=== PATIENT | female | born 1970 | race Caucasian/White ===

== ENCOUNTER → 2017-04-07 | Outpatient (CLI) | payer OTHER ==
--- NOTE | 2017-04-07 13:35 | US ---
EXAMINATION TYPE: US pelvis complete transvag DATE OF EXAM: 04/07/2017 COMPARISON: Pelvic ultrasound April 03, 2015 CLINICAL HISTORY: N93.8 DUB. TECHNIQUE: Transvaginal (TV) and Transabdominal (TA) Date of LMP: 04/05/3017 EXAM MEASUREMENTS: Uterus: 8.4 x 3.9 x 5.9 cm Endometrial Stripe: 0.3 cm Right Ovary: 2.4 x 1.4 x 1.6 cm Left Ovary: 2.2 x 1.9 x 1.4 cm 1. Uterus: Anteverted small nabothian cysts largest 0.9 x 0.7 x 0.8 cm fundal saclike structure 0.4 x 0.6 x 0.3 cm 2. Endometrium: lower fluid 1.2 x 0.3 x 0.2 3. Right Ovary: cyst 2.7 x 2.8 x 2.7 cm 4. Left Ovary: 2.0 x 2.1 x 2.3 cm cyst 5. Bilateral Adnexa: see above 6. Posterior cul-de-sac: wnl Nabothian cysts are marked in the cervix by technologist. There is small amount of fluid in endometri al canal at level of cervix as well as in the uterine fundus. No suspicious thickening of endometrium is seen. There is 2.8 cm fairly simple appearing cyst in the right ovary. There is 2.0 prominent follicle or s imple appearing cyst in the periphery of the left ovary seen best on transvaginal imaging. IMPRESSION: No suspicious finding is seen to account for patient's symptoms.
[2017-04-07 14:18] LABS: CH 30.6; CHCM 32.3; HDW 2.07; HGB 13.4 gm/dL (11.4-16.0); MCH 31.1 pg (25.0-35.0); MCHC 32.7 g/dL (31.0-37.0); MCV 95.1 fL (80.0-100.0); Mean Platelet Volume 7.1; RBC 4.31 m/uL (3.80-5.40); RDW 13.7 % (11.5-15.5); WBC 8.6 k/uL (3.8-10.6)
== END ==
LOC: RADUSWWP 12:23
PROVIDERS: ATTEND Obstetrics & Gynecology
DX: N93.8 Other specified abnormal uterine and vaginal bleeding (principal)
CPT/HCPCS: 36415; 76830; 76856; 83001; 83002; 84146; 85027

== ENCOUNTER → 2017-07-16 | Outpatient (CLI) | payer OTHER ==
[2017-07-16 13:06] LABS: Basophils # (A) 0.1 k/uL (0-0.2); Basophils % (A) 1 %; Eosinophils # (A) 0.3 k/uL (0-0.7); Eosinophils % (A) 3 %; HCT 43.8 % (34.0-46.0); HGB 14.3 gm/dL (11.4-16.0); Lymphocytes # (A) 2.1 k/uL (1.0-4.8); Lymphocytes % (A) 25 %; MCH 30.4 pg (25.0-35.0); MCHC 32.7 g/dL (31.0-37.0); MCV 93.1 fL (80.0-100.0); Mean Platelet Volume 7.2; Monocytes # (A) 0.4 k/uL (0-1.0); Monocytes % (A) 5 %; Neutrophils # (A) 5.5 k/uL (1.3-7.7); Neutrophils % (A) 65 %; Platelet Count 296 k/uL (150-450); WBC 8.5 k/uL (3.8-10.6)
[2017-07-16 13:13] LABS: Anion Gap 11 mmol/L; Blood Urea Nitrogen 16 mg/dL (7-17); Calcium 9.9 mg/dL (8.4-10.2); Carbon Dioxide 27 mmol/L (22-30); Chloride 104 mmol/L (98-107); Glucose 80 mg/dL (74-99); Potassium 4.7 mmol/L (3.5-5.1); Sodium 142 mmol/L (137-145)
== END | disposition home or self-care (01) ==
LOC: LABPAT 11:52
PROVIDERS: ATTEND Obstetrics & Gynecology
DX: Z01.812 Encounter for preprocedural laboratory examination (principal)
CPT/HCPCS: 36415; 80048; 85025; 87086

== ENCOUNTER → 2017-07-16 | Outpatient (CLI) | payer OTHER | END | disposition home or self-care (01) | LOC: LABWHC1 11:54 | PROVIDERS: ATTEND Urology | DX: N39.46 Mixed incontinence (principal) | CPT/HCPCS: 87086 ==

== ENCOUNTER 2017-07-24 06:09 | Observation (INO) | payer OTHER ==
[2017-07-22 09:02] VITALS: BMI 35.7
--- NOTE | 2017-07-23 20:23 | P.HPOB ---
History of Present Illness H&P Date: 07/23/17 Chief Complaint: Menorrhagia Patient is a 47-year-old female with heavy vaginal bleeding. Bleeding is very heavy and has continued to worsen. It is severely limiting her lifestyle and keeps her from being able work and function in her desired fashion. She also has stress urinary incontinence and is scheduled for a T OT at the same time as her robotic hysterectomy. Risks/benefits/alternatives to a robotic-assisted left scopic hysterectomy were reviewed with the patient in detail and all questions were answered for her prior to proceeding to the operating room. On physical exam this is an obese female whose HEENT is unremarkable. Heart regular, lungs clear, extremities without pain. Osteopathic exam is unremarkable. Pelvic exam is generally unremarkable and her abdomen is soft and nontender with positive bowel sounds. Assessment menorrhagia resistant to other therapies. Plan robotic-assisted left scopic hysterectomy possible VELVET possible BSO. Past Medical History Past Medical History: Osteoarthritis (OA) Additional Past Medical History / Comment(s): ARTHRITIS IN NECK, HX OF MIGRAINES., PAST HX OF HYPOTHROID WITH RX., TORN RIGHT KNEE MENISCUS., BLADDER LEAKAGE, STATES PAINFUL ABD CRAMPS WITH MENSTRUAL PERIOD. History of Any Multi-Drug Resistant Organisms: None Reported Past Surgical History: Orthopedic Surgery, Uterine Ablation Additional Past Surgical History / Comment(s): LEFT CARPAL TUNNEL. Past Anesthesia/Blood Transfusion Reactions: No Reported Reaction Past Psychological History: Anxiety, Depression Smoking Status: Former smoker Past Alcohol Use History: Occasional Additional Past Alcohol Use History / Comment(s): QUIT SMOKING 2 YRS AGO, SMOKED <1PPD., SMOKED APPROX 20 YRS. Past Drug Use History: Marijuana Additional Drug Use History / Comment(s): [employer] MARIJUANA CARD . INSTRUCTED NO MARIJANA 24 HOURS PRIOR TO SURGERY. - Past Family History Mother Family Medical History: No Reported History Medications and Allergies Home Medications Medication Instructions Recorded Confirmed Type Melatonin 3 mg PO HS 10/17/15 07/22/17 History Ibuprofen 800 mg PO ONCE 07/22/17 07/22/17 History Allergies Allergy/AdvReac Type Severity Reaction Status Date / Time Penicillins Allergy Rash/Hives Verified 07/22/17 08:34 Exam Osteopathic Statement: *. No significant issues noted on an osteopathic structural exam other than those noted in the History and Physical/Consult.
[~2017-07-24 06:09] MED LIST: DEXAMETHASONE SOD PHOSPHATE 10 MG/ML 1 ML VIAL IV ONE; FAMOTIDINE 20 MG/2 ML VIAL IV PRN; LIDOCAINE 1% 20 ML VIAL (10MG/ML) FOR IV START INTRADERMA PRN; ONDANSETRON 4 MG/2 ML VIAL IVP ONE; Pre Op ABX Message 1 EACH MISC MISCELLANE ONE; ceFAZolin IN SWFI 2 GM/20 ML SYRINGE IVP ONE
[2017-07-24] MEDS: LACTATED RINGERS 1,000 ML IV SCH (06:53)
[2017-07-24] MEDS ORDERED: GENTAMICIN 80 MG in SODIUM CHLORIDE 0.9% 100 ML IVPB ONE (07:30)
[2017-07-24] MEDS ORDERED: HYDROmorphone (PF) 1 MG/ML ONE (07:45)
[2017-07-24] MEDS ORDERED: ROCURONIUM BROMIDE 10 MG/ML 10 ML VIAL IV ONE (07:45)
[2017-07-24] MEDS ORDERED: LABETALOL 5 MG/ML VIAL MDV ONE (07:45)
[2017-07-24] MEDS ORDERED: fentaNYL (PF) 50 MCG/ML 2 ML AMP ONE (07:45)
[2017-07-24] MEDS ORDERED: MIDAZOLAM 2 MG/2 ML VIAL ONE (07:45)
[2017-07-24] MEDS ORDERED: LIDOCAINE 1% INJ 10MG/ML (20 ML MDV) ONE (07:45)
[2017-07-24] MEDS ORDERED: SUCCINYLCHOLINE CHLORIDE 100 MG/5 ML SYR IV ONE (07:45)
[2017-07-24] MEDS ORDERED: GLYCOPYRROLATE 0.2 MG/ML 2 ML VIAL ONE (07:45)
[2017-07-24] MEDS ORDERED: NEOSTIGMINE 1 MG/ML 10 ML VIAL ONE (07:45)
[2017-07-24] MEDS ORDERED: PROPOFOL 10 MG/ML 20 ML VIAL IV ONE (07:45)
[2017-07-24] MEDS ORDERED: BUPIVACAINE (PF) 0.25% 30 ML VIAL SQ ONE (08:54)
[2017-07-24] MEDS ORDERED: GENTAMICIN 80 MG in SODIUM CHLORIDE 0.9% 500 ML IRRIGATION ONE (09:23)
--- NOTE | 2017-07-24 09:40 | P.OP ---
Date of Procedure: 07/24/17 Preoperative Diagnosis: Menorrhagia dysmenorrhea Postoperative Diagnosis: Same Procedure(s) Performed: Robotic-assisted laparoscopic hysterectomy with final closure done vaginally Anesthesia: LEANA Surgeon: Philip Felton Assessment Counselor #1: Sonya Guevara Estimated Blood Loss (ml): 100 Pathology: other (Uterus and cervix) Condition: stable Disposition: floor Operative Findings: Normal uterus tubes right ovary did have a Description of Procedure: Patient was taken to the operating suite where general anesthetic was found be adequate. She was prepped and draped in the normal sterile fashion placed in dorsal lithotomy position. Initially a weighted speculum was inserted into the vagina and the anterior lip cervix identified and grasped with a single-tooth tenaculum area cervix was then dilated and uterus was sounded to 8 cm. 3 cm cup was then used and a Maria E manipulator was inserted without difficulty. Cervix had been marked at 3 and 9 to assist in removal of the uterus. Once laparoscopic instruments were removed and Anders catheter was placed. Gloves were then changed and attention was turned to the abdominal portion of the procedure where 2 mL of quarter percent Marcaine was injected periumbilically. Through this injected anesthetic a 5 mm skin incision was made and through this incision under direct visualization with an optical trocar and sleeve the camera was inserted. Once peritoneal placement was assured gas was allowed to fully insufflate the abdomen and patient's placement very steep Trendelenburg position. 2 lateral ports then placed slightly inferior to the umbilicus and 10 cm lateral to the umbilicus on both the right and left hand side and a fourth port and sleeve was inserted through 1 cm incision between the left lateral and medial ports. Robot was then brought in and docked and a Maryland grasper was placed in the 2 arm and a monopolar scissor and the one arm. At this point I broke scrub and went to the console. Observations pelvis were noted. The uterus was then elevated and tipped to the right side and the utero- ovarian layer was identified cauterized and transected round ligament tissues and fallopian tube were then transected dissected with cauterization all the way to the round ligament. Round ligament was then cauterized and transected and skeletonization of the tissues anteriorly and posteriorly was done. Once, tries to the level the bladder flap bladder flap was undermined with the Maryland and incised with metastases scissors carrying this opening across the face of the uterus. Latter was then bluntly dissected out of the operative field. Similar dissection was then done on the right-hand side. Once this was accomplished balloon was blown up in an anterior colpotomy was made following the cup in a counterclockwise fashion we were able to cauterize the uterine vascularity to help maintain hemostasis however, when uterus was tried to be sharply anteverted the table on the Maria E manipulator broke and was not allowing- assisted manipulate the uterus any further we had gotten approximately two th[address] way around the uterus when this happened and despite with a single- tooth tenaculum intra-abdominally we were unable to visualize well enough that I felt comfortable to proceed. Due to the limited visibility and as far into the surgery as we were at that point a decision was made to terminate the robotic portion of the procedure and moved to a vaginal hysterectomy for PURPOSES. Robot was then undocked and moved out of the operative field patient was placed in his much deeper Sammie position sit we're able to get into the vagina well instruments her from the vagina were removed. At this point I did remove the sutures as well and grasped the cervix with a single-tooth tenaculum pulling the uterus down I was able to identify the posterior peritoneum with my finger and placed in Allis clamp on. Using a Vance scissors the posterior colpotomy was completed to approximately uterosacral ligament on the right-hand side where a Omayra clamp was used to clamp this tissue tissue was clamped cut and tied and the uterus was removed in toto. No bleeding is noted from any of the pedicles. Boundaries of the vaginal cuff were then identified and marked with Allis clamps and using traction suture was placed and the vaginal cuff was closed in a running locking fashion with 0 Vicryl suture. Once this was completed no bleeding is noted in the vagina and urine is noted to be clear. At this point we returned to the abdominal portion of procedure Sharon scrub skin again and camera was inserted no bleeding is noted from any of the pedicles pelvis was suctioned and irrigated of blood and fluids and all instruments were then removed and gas was allowed to expel from the abdomen. 5 deep breaths were provided during this process. The skin incisions were then closed with 4-0 Vicryl subcuticularly. The remaining 8 mL of quarter percent Marcaine was then injected around these incisions and the patient was then positioned for Dr. Marcum to do a sling procedure. Overall from my standpoint patient did tolerate the surgery very well and despite the instrument failure we were able to conclude the procedure in a minimally invasive fashion.
[2017-07-24] MEDS ORDERED: BUPIVACAINE-EPI 0.5%-1:200,000 10 ML VIAL SQ ONE ×2 (09:47→10:09)
[2017-07-24] MEDS ORDERED: LACTATED RINGERS 1,000 ML IV ONE ×2 (09:48)
--- NOTE | 2017-07-24 10:21 | P.OP ---
Date of Procedure: 07/24/17 Preoperative Diagnosis: Mixed Urinary Incontinence Postoperative Diagnosis: Same Procedure(s) Performed: Obtryx Subfascial Sling Anesthesia: LEANA Surgeon: Scott Otto Estimated Blood Loss (ml): 30 IV fluids (ml): 300 Pathology: none sent Condition: stable Disposition: PACU Indications for Procedure: 47 yo WF with a several year history of mixed urinary incontinence, which requires the use of several pads daily. She is scheduled to undergo a robotic- assisted laparoscopic hysterectomy. On examination, there is evidence of urethral hypermobility. Stress incontinence is demonstrated, and a Ben test is positive. She has elected to undergo a TOT sling at the time of the hysterectomy, and this was discussed in detail. Also discussed: rationale for treatment, alternative treatment options, risks, and the recent controversy regarding synthetic slings. Operative Findings: No anatomic abnormalities noted. Description of Procedure: I entered the operating room after the hysterectomy was completed. The patient was positioned in the dorsal lithotomy position, with her legs supported in Ruel stirrups. Her condition was stable. 0.5% Marcaine with epinephrine was injected submucosally within the anterior vaginal wall, over the urethra. The scalpel was then used to make an anterior midline vaginal incision over the urethra. Metzenbaum scissors were used to dissect laterally within the submucosal plane, to the inferior pubic ramus. The scalpel was used to make bilateral groin incisions at the level of the clitoris. Subcutaneous tissues were spread with a hemostat. Each of the helical needles were passed through the respective groin incision, and turned such that the needle tip wrapped around the pubis. The needle tips were guided digitally into the vaginal incision. The Obtryx graft, which had been previously soaked in antibiotic solution, was secured to the needle tips in the standard fashion. The needles were then withdrawn, and the position of the graft was adjusted such that it overlie the mid urethra, as desired. With a hemostat placed between the graft and the urethra to prevent tension of the graft over the urethra, the plastic sheath was removed from the ends of the graft. The ends of the graft were cut beneath the skin incisions, and these incisions were closed using 4-0 Vicryl suture in a subcuticular fashion. Hemostasis within the vaginal incision was adequate, and the vaginal incision was closed using 2-0 Vicryl suture in a running fashion. Cystoscopy was performed. The 30 lens was used to introduce the 17-Bulgarian Storz cystoscopic sheath through the urethra and into the bladder under direct vision. The urethra and bladder were unremarkable. There was no evidence of perforation. Both ureteral orifices were of normal anatomic location and configuration, and clear urine effluxed from both. No tumors or foreign bodies were seen. The cystoscope was removed, and the Anders catheter was replaced into the bladder. All sponge and needle counts were correct. The patient tolerated the procedure well was taken to the recovery room in stable condition.
[2017-07-24] MEDS ORDERED: HYDROcodone/APAP 5-325MG 1 EACH TAB PO PRN ×2 (10:24)
[2017-07-24] MEDS: HYDROmorphone 0.5 MG/0.5 ML SYRINGE IVP PRN ×2 (10:48→21:04)
[2017-07-24] MEDS ORDERED: KETOROLAC 30 MG/ML 1 ML VIAL IVP ONE (10:48)
[2017-07-24] MEDS ORDERED: diphenhydrAMINE 50 MG/ML 1 ML VIAL IVP ONE (10:49)
[2017-07-24] MEDS: DEXTROSE 5%-0.45% NACL 1,000 ML IV SCH (15:37)
[2017-07-24] MEDS: ONDANSETRON 4 MG/2 ML VIAL IVP PRN (18:09)
[2017-07-24] MEDS: LEVOFLOXACIN 500MG-D5W PMX 500 MG in DEXTROSE/WATER 1 100ML.BAG IVPB SCH (18:09)
[2017-07-24] MEDS: KETOROLAC 30 MG/ML 1 ML VIAL IVP PRN (18:10)
[2017-07-25] MEDS: KETOROLAC 30 MG/ML 1 ML VIAL IVP PRN (00:02)
[2017-07-25] MEDS: DEXTROSE 5%-0.45% NACL 1,000 ML IV SCH ×2 (02:20→14:43)
[2017-07-25] MEDS: HYDROmorphone 2 MG/ML 1 ML SYRINGE IVP PRN ×3 (02:26→11:28)
--- NOTE | 2017-07-25 09:03 | P.PN ---
Progress Note - Text Progress Note Date: 07/25/17 patient seen and evaluated postop day 1 from a laparoscopic assisted robotic hysterectomy with vaginal removal. She is doing very well. She is ambulating, voiding and she is tolerating her diet. She voices no complaints. Vital signs are stable and afebrile. Heart regular, lungs clear, extremities without pain. Abdomen is soft minimal distention with incisions are clean dry and intact. Assessment postop day 1. Plan likely discharged home later today once urology has done there evaluation.
[2017-07-25] MEDS: LEVOFLOXACIN 500MG-D5W PMX 500 MG in DEXTROSE/WATER 1 100ML.BAG IVPB SCH (11:25)
[2017-07-25] MEDS: ONDANSETRON 4 MG/2 ML VIAL IVP PRN (13:11)
[2017-07-25] MEDS ORDERED: BISACODYL 10 MG SUPP RECTAL PRN (17:06)
--- NOTE | 2017-07-25 17:06 | P.DS ---
Providers Date of admission: 07/24/17 19:59 Expected date of discharge: 07/25/17 Attending physician: Scott Otto Primary care physician: Stated None Hospital Course: On the day of admission, the patient underwent a robotic-assisted laparoscopic hysterectomy. The final closure was done vaginally without complication. An Obtryx sling was performed at that time. The Anders catheter was removed on the first postoperative day. The patient was able to void, and postvoid residuals were under 100 mL. She experienced some nausea, and had 2 episodes of emesis. She was ambulating, and passing a small amount of flatus. She was tolerating diet in small amounts. On examination, the incisions were clean and dry. Minimal vaginal spotting is noted. Procedures: Robotic-assisted laparoscopic hysterectomy with Obtryx sling on 07/24/2017. Patient Condition at Discharge: Good Plan - Discharge Summary Discharge Rx Participant: Yes New Discharge Prescriptions: New Hydrocodone/Acetaminophen [Ontario 5-325] 1 - 2 each PO Q4HR PRN #20 tab PRN Reason: Pain Ketorolac [Toradol] 10 mg PO Q6HR #12 tab Levofloxacin [Levaquin] 500 mg PO DAILY #5 tab Ondansetron [Zofran] 4 mg PO Q8HR PRN #10 tab PRN Reason: Nausea And Vomiting No Action Melatonin 3 mg PO HS Ibuprofen 800 mg PO ONCE Discharge Medication List Melatonin 3 mg PO HS 10/17/15 [History] Ibuprofen 800 mg PO ONCE 07/22/17 [History] Hydrocodone/Acetaminophen [[place]tario 5-325] 1 - 2 each PO Q4HR PRN #20 tab 07/25/17 [Rx] Ketorolac [Toradol] 10 mg PO Q6HR #12 tab 07/25/17 [Rx] Levofloxacin [Levaquin] 500 mg PO DAILY #5 tab 07/25/17 [Rx] Ondansetron [Zofran] 4 mg PO Q8HR PRN #10 tab 07/25/17 [Rx] Follow up Appointment(s)/Referral(s): Scott Otto MD [STAFF PHYSICIAN] - 07/30/17 Activity/Diet/Wound Care/Special Instructions: Okay to shower 07/26/2017. No lifting, driving, or strenuous activity. Discharge Disposition: HOME SELF-CARE
[2017-07-25 17:54] VITALS: BP 149/81; PULSE 60; RESP 20; TEMP 98
[2017-07-26] MEDS ORDERED: LEVOFLOXACIN 500 MG TAB PO SCH (11:00)
== END 2017-07-25 18:55 | disposition home or self-care (01) ==
LOC: OR 06:09 → 6PED 10:21 → OR 19:59 → 6PED 19:59
PROVIDERS: ADMIT Urology; ATTEND Urology
DX: N80.0 Endometriosis of uterus (principal); N88.8 Other specified noninflammatory disorders of cervix uteri; N72 Inflammatory disease of cervix uteri; N92.0 Excessive and frequent menstruation with regular cycle; N39.46 Mixed incontinence; N94.6 Dysmenorrhea, unspecified; N36.41 Hypermobility of urethra; E66.9 Obesity, unspecified; M19.90 Unspecified osteoarthritis, unspecified site; M46.92 Unspecified inflammatory spondylopathy, cervical region; Z87.891 Personal history of nicotine dependence; Z88.0 Allergy status to penicillin; Z79.899 Other long term (current) drug therapy; Z86.39 Personal history of other endocrine, nutritional and metabolic disease
CPT/HCPCS: 57288; 58550; S2900; 81025; 86850; 86900; 86901; 88307

== ENCOUNTER → 2022-02-15 | Outpatient (CLI) | payer OTHER ==
--- NOTE | 2022-02-15 15:50 | MM ---
Reason for Exam: Additional evaluation requested from prior study. Last mammogram was performed 6 year(s) and 10 month(s) ago. Indicated Problems: Lump or thickening of the right side for 2 Week(s). Patient History: Menarche at age 14. First Full-Term at age 23. Hysterectomy at age 48. Postmenopausal. Risk Values: Karen 5 year model risk: 0.9%. NCI Lifetime model risk: 8.0%. Prior Study Comparison: 04/17/2015 Bilateral Screening Mammogram, [facility]. Tissue Density: There are scattered fibroglandular densities. Findings: Analyzed By CAD. Scattered benign calcifications seen bilaterally. No evidence for mass or distortion. Overall Assessment: Benign, BI-RAD 2 Management: Screening Mammogram of both breasts in 1 year. A clinical breast exam by your physician is recommended on an annual basis and results should be correlated with mammographic findings. This exam should not preclude additional follow-up of suspicious palpable abnormalities. Results were given to the patient verbally at the time of exam. Electronically signed and approved by: Gerardo Pedro M.D. Radiologis
== END | disposition home or self-care (01) ==
LOC: RADMAMWWP 12:59
PROVIDERS: ATTEND Family Medicine
DX: Z12.31 Encounter for screening mammogram for malignant neoplasm of breast (principal); R92.8 Other abnormal and inconclusive findings on diagnostic imaging of breast; Z78.0 Asymptomatic menopausal state
CPT/HCPCS: 77066

== ENCOUNTER → 2023-11-18 | Outpatient (CLI) | payer OTHER ==
--- NOTE | 2023-11-18 20:36 | MM ---
Reason for Exam: Screening (asymptomatic). Last mammogram was performed 1 year(s) and 9 month(s) ago. Patient History: Menarche at age 14. First Full-Term at age 23. Hysterectomy at age 48. Postmenopausal. Patient has history of breast feeding. Maternal aunt (great) had ovarian cancer at or over age 50. Risk Values: Karen 5 year model risk: 0.9%. NCI Lifetime model risk: 7.8%. Prior Study Comparison: 04/17/2015 Bilateral Screening Mammogram, [facility]. 02/15/2022 Bilateral MG diagnostic mammo w CAD PENNY, [facility]. Tissue Density: There are scattered areas of fibroglandular density. Findings: Analyzed By CAD. There is no suspicious group of microcalcifications or new suspicious mass in either breast. Overall Assessment: Negative, BI-RAD 1 Management: Screening Mammogram of both breasts in 1 year. . Patient should continue monthly self-breast exams. A clinical breast exam by your physician is recommended on an annual basis. This exam should not preclude additional follow-up of suspicious palpable abnormalities. Note on Karen scores and lifetime risk: 1. A Karen score greater than 3% is considered moderate risk. If this is the case, consider specialist referral to assess eligibility for a risk reducing agent. 2. If overall lifetime risk for the development of breast cancer is 20% or higher, the patient may qualify for future screening with alternating mammogram and breast MRI. Electronically signed and approved by: Justus Joseph M.D. Radiologist
--- NOTE | 2023-11-18 20:44 | BD ---
EXAMINATION TYPE: Axial Bone Density DATE OF EXAM: 11/18/2023 CLINICAL HISTORY: 53 years old Female. ICD-10 CODE: Z78.0 ASYMP LUIS ENRIQUE STATE Height: Weight: FRAX RISK QUESTIONS: 3. Menopause before 45: no at 48 Current Tobacco Use: yes, marijuana, RISK FACTORS HISTORY OF: arthritis, MEDICATIONS: probiotic only, Thyroid Medications: yes, synthroid product, 2-3 yrs EXAM MEASUREMENTS: Bone mineral densitometry was performed using the [employer] System. Bone mineral density as measured about the Lumbar spine is: ----- L1-L4(G/cm2): 1.319 T Score Values are as follows: ----- L1: 0.7 ----- L2: 1.7 ----- L3: 1.3 ----- L4: 0.7 ----- L1-L4: 1.2 Z Score Values are as follows: ----- L1: 0.1 ----- L2: 1.2 ----- L3: 0.7 ----- L4: 0.1 ----- L1-L4: 0.6 Bone mineral density is her first dexa study, baseline. Bone mineral density about the R hip (g/cm2): 1.168 Bone mineral density about the L hip (g/cm2): 1.248 T Score values are as follows: -----R Neck: 0.7 -----L Neck: 0.7 -----R Total: 1.3 -----L Total: 1.9 Z Score values are as follows: -----R Neck: 0.9 -----L Neck: 0.8 -----R Total: 1.0 -----L Total: 1.6 Bone mineral density is a baseline study today. FRAX%s: The graph provided illustrates a 3.6% chance for a major osteoporotic fx and a 0.0% chance fo r the hips probability for fx in 10 years time. IMPRESSION: Normal (Values between +1 and -1 indicate normal bone mass). Consider repeating this study in 5 year s or sooner if there is some new clinical indication. NOTE: T-SCORE=SD OF THE YOUNG ADULT MEAN.
== END | disposition home or self-care (01) ==
LOC: RADMAMWWP 08:26
PROVIDERS: ATTEND Family Medicine
DX: Z12.31 Encounter for screening mammogram for malignant neoplasm of breast (principal); Z78.0 Asymptomatic menopausal state
CPT/HCPCS: 77067; 77080

== ENCOUNTER 2024-04-18 14:02 | Emergency (ER) | payer OTHER ==
[2024-04-18 14:21] VITALS: TEMP 98.9
[2024-04-18] MEDS: PROPARACAINE 0.5% OPHTH DROPS 15 ML BTL LEFT EYE STA (14:39)
[2024-04-18] MEDS: FLUORESCEIN STRIPS 1 MG STRIP RIGHT EYE ONE (14:39)
--- NOTE | 2024-04-18 14:50 | ED ---
Eye Problem HPI - General Chief complaint: Eye Problems Stated complaint: eye issue Time Seen by Provider: 04/18/24 14:23 Source: patient, RN notes reviewed Mode of arrival: ambulatory Limitations: no limitations - History of Present Illness Initial comments: 4-year-old female presents emergency department with chief complaint of left eye irritation. Patient states that she wore some old colored contacts yesterday for hollowing costume. She states that she woke up with discomfort of her left eye she states that it is hazy all over. Denies any pain behind her eye denies any pain with ocular movements. Patient denies any fevers or chills patient offers no other complaints. - Related Data Home Medications Medication Instructions Recorded Confirmed Melatonin 3 mg PO HS 10/17/15 07/25/17 Ibuprofen 800 mg PO ONCE 07/22/17 07/25/17 Previous Rx's Medication Instructions Recorded Hydrocodone/Acetaminophen [[place] 1 - 2 each PO Q4HR PRN #20 tab 07/25/17 5-325] Ketorolac [Toradol] 10 mg PO Q6HR #12 tab 07/25/17 Levofloxacin [Levaquin] 500 mg PO DAILY #5 tab 07/25/17 Ondansetron [Zofran] 4 mg PO Q8HR PRN #10 tab 07/25/17 Allergies Allergy/AdvReac Type Severity Reaction Status Date / Time Penicillins Allergy Rash/Hives Verified 07/24/17 21:09 Review of Systems ROS Statement: Those systems with pertinent positive or pertinent negative responses have been documented in the HPI. ROS Other: All systems not noted in ROS Statement are negative. Past Medical History Past Medical History: Osteoarthritis (OA) Additional Past Medical History / Comment(s): ARTHRITIS IN NECK, HX OF MIGRAINES., PAST HX OF HYPOTHROID WITH RX., TORN RIGHT KNEE MENISCUS., BLADDER LEAKAGE, STATES PAINFUL ABD CRAMPS WITH MENSTRUAL PERIOD. History of Any Multi-Drug Resistant Organisms: None Reported Past Surgical History: Bladder Surgery, Hysterectomy, Orthopedic Surgery, Uterine Ablation Additional Past Surgical History / Comment(s): LEFT CARPAL TUNNEL. Past Anesthesia/Blood Transfusion Reactions: No Reported Reaction Past Psychological History: Anxiety, Depression Smoking Status: Former smoker Past Alcohol Use History: Occasional Past Drug Use History: Marijuana - Past Family History Mother Family Medical History: No Reported History General Exam Limitations: no limitations General appearance: alert, in no apparent distress Head exam: Present: atraumatic, normocephalic, normal inspection Eye exam: Present: PERRL, EOMI, other (Fluorescein uptake of the left eye in the central region multiple areas patient had full relief of proparacaine). Absent: normal appearance, scleral icterus, conjunctival injection, periorbital swelling ENT exam: Present: normal exam, normal oropharynx, mucous membranes moist Neck exam: Present: normal inspection. Absent: tenderness, meningismus, lymphadenopathy Respiratory exam: Present: normal lung sounds bilaterally. Absent: respiratory distress, wheezes, rales, rhonchi, stridor Cardiovascular Exam: Present: regular rate, normal rhythm, normal heart sounds. Absent: systolic murmur, diastolic murmur, rubs, gallop, clicks Course Vital Signs 04/18/24 14:17 Temperature 98.9 F Pulse Rate 83 Respiratory 18 Rate Blood Pressure 160/96 O2 Sat by Pulse 99 Oximetry Medical Decision Making - Medical Decision Making Was pt. sent in by a medical professional or institution (, PA, STICK FEEDER, urgent care, hospital, or senior care...) When possible be specific @ -No Did you speak to anyone other than the patient for history (EMS, parent, family, police, friend...)? What history was obtained from this source @ -No Did you review nursing and triage notes (agree or disagree)? Why? @ -I reviewed and agree with nursing and triage notes Were old charts reviewed (outside hosp., previous admission, EMS record, old EKG, old radiological studies, urgent care reports/EKG's, senior care records)? Report findings @ -No old charts were reviewed Differential Diagnosis (chest pain, altered mental status, abdominal pain women, abdominal pain men, vaginal bleeding, weakness, fever, dyspnea, syncope, headache, dizziness, GI bleed, back pain, seizure, CVA, palpatations, mental health, musculoskeletal)? @ -Corneal abrasion, corneal ulceration EKG interpreted by me (3pts min.). @ -None X-rays interpreted by me (1pt min.). @ -None done CT interpreted by me (1pt min.). @ -None done U/S interpreted by me (1pt. min.). @ -None done What testing was considered but not performed or refused? (CT, X-rays, U/S, labs)? Why? @ -None What meds were considered but not given or refused? Why? @ -None Did you discuss the management of the patient with other professionals (professionals i.e. , PA, STICK FEEDER, lab, RT, psych nurse, social insurance specialist, drivers' cash clerk, teacher, special forces warrant officer, shoe caser)? Give summary @ -No Was smoking cessation discussed for >3mins.? @ -No Was critical care preformed (if so, how long)? @ -No Were there social determinants of health that impacted care today? How? (Homelessness, low income, unemployed, alcoholism, drug addiction, transportation, low edu. Level, literacy, decrease access to med. care, [facility], rehab)? @ -No Was there de-escalation of care discussed even if they declined (Discuss DNR or withdrawal of care, Hospice)? DNR status @ -No What co-morbidities impacted this encounter? (DM, HTN, Smoking, COPD, CAD, Cancer, CVA, ARF, Chemo, Hep., AIDS, mental health diagnosis, sleep apnea, morbid obesity)? @ -None Was patient admitted / discharged? Hospital course, mention meds given and route, prescriptions, significant lab abnormalities, going to OR and other pertinent info. @ -Discharged patient has central corneal uptake concerning for ulceration patient was started on Vigamox 1 drop of 1 to 2 hours today and follow-up with ophthalmology tomorrow. Patient understands that she needs to have very close follow-up as this is involving her central cornea and vision Undiagnosed new problem with uncertain prognosis? @ -No Drug Therapy requiring intensive monitoring for toxicity (Heparin, Nitro, Insulin, Cardizem)? @ -No Were any procedures done? @ -No Diagnosis/symptom? @ -Corneal ulcer Acute, or Chronic, or Acute on Chronic? @ -Acute Uncomplicated (without systemic symptoms) or Complicated (systemic symptoms)? @ -Uncomplicated Side effects of treatment? @ -No Exacerbation, Progression, or Severe Exacerbation? @ -No Poses a threat to life or bodily function? How? (Chest pain, [place], [place], pneumonia, PE, COPD, DKA, ARF, appy, cholecystitis, CVA, Diverticulitis, Homicidal, Suicidal, threat to staff... and all critical care pts) @ -No Disposition Clinical Impression: Central corneal ulcer, left eye Disposition: HOME SELF-CARE Condition: Stable Instructions (If sedation given, give patient instructions): Corneal Ulcer (ED) Additional Instructions: Use eyedrops 1 drop every 1-2 hours today and then every 4 hours for the next 6 days. Please return to the Emergency Department if symptoms worsen or any other concerns. Is patient prescribed a controlled substance at d/c from ED?: No Referrals: Candida Faulkner DO [Primary Care Provider] - 1-2 days Martin Rose DO [Doctor of Osteopathic Medicine] - 1-2 days Roberto Rivera MD [STAFF PHYSICIAN] - 1-2 days Swathi Xie MD [STAFF PHYSICIAN] - 1-2 days Time of Disposition: 14:50
[2024-04-18] MEDS: MOXIFLOXACIN HCL 0.5% DROPS 3 ML BTL LEFT EYE ONE (15:19)
[2024-04-18 16:44] VITALS: BP 120/76; PULSE 78; RESP 16
== END 2024-04-18 15:30 | disposition home or self-care (01) ==
LOC: EC 14:02
CPT/HCPCS: 99283

== ENCOUNTER 2024-11-04 10:22 | Emergency (ER) | payer OTHER ==
[2024-11-04 10:36] VITALS: TEMP 98
--- NOTE | 2024-11-04 10:54 | ED ---
Lower Extremity Injury HPI <J Carlos Oh - Last Filed: 11/04/24 12:07> - General Source: patient, RN notes reviewed Mode of arrival: ambulatory Limitations: no limitations <Mabel Haro - Last Filed: 11/04/24 13:05> - General Chief Complaint: Extremity Injury, Lower Stated Complaint: R leg swelling Time Seen by Provider: 11/04/24 10:36 - History of Present Illness Initial Comments: Patient is a 54-year-old female who presents with 4 hours of severe right knee pain. She states that this morning she stepped off her porch and heard a loud pop, her leg buckled, and since then she has been unable to bear weight, walk, straighten, or bend her knee, and notes that she has had increased swelling. Rates the pain 11/10 right now. She denies falling or losing consciousness. Of note she reports that she began having 5/10 right knee pain on Friday after a busy day with mild swelling and soreness. She saw her PCP on Friday and looks she was given an IM steroid injection. Since that already she has been taking Motrin intermittently with no relief. She denies taking Motrin this morning a fter the episode of popping noise. She does note a history of a torn meniscus in 2004 that was not repaired. She denies any arthritis in her knee. She does have a history of 2 cortisone injections in her right knee previously stating that the last time was over 10 years ago. (Mabel Haro) - Related Data Home Medications Medication Instructions Recorded Confirmed Melatonin 3 mg PO HS 10/17/15 07/25/17 Ibuprofen 800 mg PO ONCE 07/22/17 07/25/17 Previous Rx's Medication Instructions Recorded Hydrocodone/Acetaminophen [[place] 1 - 2 each PO Q4HR PRN #20 tab 07/25/17 5-325] Ketorolac [Toradol] 10 mg PO Q6HR #12 tab 07/25/17 Levofloxacin [Levaquin] 500 mg PO DAILY #5 tab 07/25/17 Ondansetron [Zofran] 4 mg PO Q8HR PRN #10 tab 07/25/17 Cyclobenzaprine [Flexeril] 10 mg PO TID PRN #30 tab 08/14/24 Allergies Allergy/AdvReac Type Severity Reaction Status Date / Time Penicillins Allergy Rash/Hives Verified 11/04/24 10:36 Review of Systems ROS Other: All systems not noted in ROS Statement are negative. <J Carlos Oh - Last Filed: 11/04/24 12:07> ROS Other: All systems not noted in ROS Statement are negative. Constitutional: Denies: fever, chills Gastrointestinal: Denies: nausea, vomiting Musculoskeletal: Reports: joint swelling <Mabel Haro - Last Filed: 11/04/24 13:05> ROS Statement: Those systems with pertinent positive or pertinent negative responses have been documented in the HPI. Past Medical History Past Medical History: Osteoarthritis (OA) Additional Past Medical History / Comment(s): ARTHRITIS IN NECK, HX OF MIGRAINES., PAST HX OF HYPOTHROID WITH RX., TORN RIGHT KNEE MENISCUS., BLADDER LEAKAGE, STATES PAINFUL ABD CRAMPS WITH MENSTRUAL PERIOD. History of Any Multi-Drug Resistant Organisms: None Reported Past Surgical History: Bladder Surgery, Hysterectomy, Orthopedic Surgery, Uterine Ablation Additional Past Surgical History / Comment(s): LEFT CARPAL TUNNEL. Past Anesthesia/Blood Transfusion Reactions: No Reported Reaction Past Psychological History: Anxiety, Depression Smoking Status: Former smoker Past Alcohol Use History: Occasional Past Drug Use History: Marijuana - Past Family History Mother Family Medical History: No Reported History <Mabel Haro - Last Filed: 11/04/24 13:05> General Exam Limitations: no limitations General appearance: alert, in no apparent distress Head exam: Present: atraumatic Eye exam: Present: normal appearance, EOMI ENT exam: Present: mucous membranes moist, normal external ear exam Respiratory exam: Present: normal lung sounds bilaterally. Absent: respiratory distress, wheezes, rales, rhonchi, accessory muscle use Cardiovascular Exam: Present: regular rate, normal rhythm, normal heart sounds. Absent: systolic murmur, diastolic murmur Expanded Peripheral pulses: 2+: Posterior Tibialis (R), Posterior Tibialis (L) GI/Abdominal exam: Present: soft, normal bowel sounds. Absent: distended, tenderness Right Knee exam: Present: tenderness, swelling. Absent: full ROM, ecchymosis, erythema, effusion, full knee extension <Mabel Haro - Last Filed: 11/04/24 13:05> Course Vital Signs 11/04/24 11/04/24 10:30 12:20 Temperature 98.0 F Pulse Rate 84 Respiratory 18 Rate Blood Pressure 170/102 182/90 O2 Sat by Pulse 98 99 Oximetry Medical Decision Making <J Carlos Oh - Last Filed: 11/04/24 12:07> <Mabel Haro - Last Filed: 11/04/24 13:05> - Medical Decision Making I personally saw the patient and performed the critical portion of the service. I discussed the patient care with the tara. I directed management, care planning and final disposition of the patient. This includes, but not limited to, review of all lab work, radiological studies, EKG's, consultations, vital signs, and nursing notes. EKG interpreted by me (3pts min.) @As above X-Rays interpreted by me (1 pt min.) @X-ray of right knee and right tib-fib without acute abnormality, tiny calcification CT interpreted by me ( 1pt min.) @None U/S interpreted by me (1 pt min.) @None Critical care time of 0 minutes excluding separately billable procedures was spent in conjunction with critical care activities provided by the Resident and Attending simultaneously. I was present during no procedures for all critical portions of the procedure and as immediately available to furnish service during the entire procedure. (J Carlos Oh) Was pt. sent in by a medical professional or institution (, PA, ANIMAL CARE TAKER, urgent care, hospital, or shelter...) When possible be specific @ -No Did you speak to anyone other than the patient for history (EMS, parent, family, police, friend...)? What history was obtained from this source @ -No Did you review nursing and triage notes (agree or disagree)? Why? @ -I reviewed and agree with nursing and triage notes Were old charts reviewed (outside hosp., previous admission, EMS record, old EKG, old radiological studies, urgent care reports/EKG's, shelter records)? Report findings @ -No old charts were reviewed Differential Diagnosis? @ -Differential Musculoskeletal Muscular strain, contusion, ligament sprain, fracture, arthritis, septic arthritis, bursitis, cellulitis, muscle spasm, nerve compression, DVT, arterial occlusion, herpes zoster, electrolyte abnormality, tumor.... This is not meant to be in all inclusive list EKG interpreted by me (3pts min.). @ -None done X-rays interpreted by me (1pt min.). @ -Knee and tibia/fibula x-rays show no acute fractures CT interpreted by me (1pt min.). @ -None done U/S interpreted by me (1pt. min.). @ -None done What testing was considered but not performed or refused? (CT, X-rays, U/S, labs)? Why? @ -None What meds were considered but not given or refused? Why? @ -None Did you discuss the management of the patient with other professionals (professionals i.e. , PA, ANIMAL CARE TAKER, lab, RT, psych nurse, sexual assault social worker, co teacher, teacher, airconditioning drafting officer, rn field case manager)? Give summary @ -No Was smoking cessation discussed for >3mins.? @ -No Was critical care preformed (if so, how long)? @ -No Were there social determinants of health that impacted care today? How? (Homelessness, low income, unemployed, alcoholism, drug addiction, transportation, low edu. Level, literacy, decrease access to med. care, [facility], rehab)? @ -No Was there de-escalation of care discussed even if they declined (Discuss DNR or withdrawal of care, Hospice)? DNR status @ -No What co-morbidities impacted this encounter? (DM, HTN, Smoking, COPD, CAD, Cancer, CVA, ARF, Chemo, Hep., AIDS, mental health diagnosis, sleep apnea, morbid obesity)? @ -None Was patient admitted / discharged? Hospital course, mention meds given and route, prescriptions, significant lab abnormalities, going to OR and other pertinent info. @ -Patient is a 54-year-old female who presented with 4 hours of severe right knee pain. Physical exam revealed erythema and limited range of motion. Knee and tibia/fibula x-rays were obtained. No acute processes were noted. Provided patient with a knee immobilizer and crutches. She was given a Toradol injection. She is encouraged to follow-up with primary care and orthopedics. Knee xray and tib/fib, no acute processes. Offered knee immobilizer vs ANASTACIO wrap. Undiagnosed new problem with uncertain prognosis? @ -No Drug Therapy requiring intensive monitoring for toxicity (Heparin, Nitro, Insulin, Cardizem)? @ -No Were any procedures done? @ -No Diagnosis/symptom? @ -Knee sprain Acute, or Chronic, or Acute on Chronic? @ -Acute Uncomplicated (without systemic symptoms) or Complicated (systemic symptoms)? @ -Uncomplicated Side effects of treatment? @ -No Exacerbation, Progression, or Severe Exacerbation? @ -No Poses a threat to life or bodily function? How? (Chest pain, [place], [place], pneumonia, PE, COPD, DKA, ARF, appy, cholecystitis, CVA, Diverticulitis, Homicidal, Suicidal, threat to staff... and all critical care pts) @ -No (Mabel Haro) Disposition <J Carlos Oh - Last Filed: 11/04/24 12:07> Is patient prescribed a controlled substance at d/c from ED?: No Time of Disposition: 12:47 <Mabel Haro - Last Filed: 11/04/24 13:05> Clinical Impression: Knee sprain Disposition: HOME SELF-CARE Instructions (If sedation given, give patient instructions): Knee Sprain (ED) Additional Instructions: Please follow up with primary care provider in 1-2 days. Please follow-up with specialists as indicated. Please monitor yourself closely for new, changing or worsening symptoms, symptoms that persist beyond another 72 hours, fever, inability to tolerate/keep down fluids or your medications, inability to follow up with outpatient providers as instructed and should you experience these symptoms or should you have any further concerns for your wellbeing please return to the ED or call 911 immediately. Referrals: Candida Faulkner DO [Primary Care Provider] - 1-2 days Dionisio Mejía MD [Medical Doctor] - 1-2 days
--- NOTE | 2024-11-04 11:47 | XR ---
EXAMINATION TYPE: XR knee complete RT, XR tibia fibula RT DATE OF EXAM: 11/04/2024 11:34 AM COMPARISON: None. CLINICAL INDICATION: Female, 54 years old with history of knee pain, pain TECHNIQUE: XR knee complete RT, XR tibia fibula RT views were obtained FINDINGS: Tiny ossific density adjacent to the medial intercondylar spine could reflect a tiny avulsi on. Consider MRI correlation with regards to ACL injury. The tri-compartment joint spaces appear with in normal limits. The overlying soft tissue appears unremarkable. IMPRESSION: Tiny ossific density adjacent to the medial intercondylar spine could reflect a tiny avu lsion. Consider MRI correlation with regards to ACL injury. [facility], , 11/04/2024 11:44 AM
[2024-11-04] MEDS: KETOROLAC 15 MG/ML 1 ML VIAL IM STA (12:38)
[2024-11-04 13:07] VITALS: BP 178/86; PULSE 68; RESP 20
== END 2024-11-04 13:10 | disposition home or self-care (01) ==
LOC: EC 10:22
DX: S83.91XA Sprain of unspecified site of right knee, initial encounter (principal); Z88.0 Allergy status to penicillin; Z87.891 Personal history of nicotine dependence; X50.9XXA Other and unspecified overexertion or strenuous movements or postures, initial encounter
CPT/HCPCS: 73590; 73562; 99283; 96372; L1830; J1885